=== PATIENT | male | born 1970 | race Caucasian/White ===

== ENCOUNTER 2024-03-28 15:35 | Emergency (ER) | payer MEDICARE ==
--- NOTE | 2024-03-28 16:01 | ERPHSYRPT ---
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 He has a history of cardiac stents and a pacemaker/defibrillator in place. His cardiologists are in [place] area in the [facility]. Patient is vacationing near the hospital in [place]. Patient thinks that he was defibrillated about 3:00 this morning but did not arrive to our facility until around 330 this afternoon. He states that his pain is typical for him when he has had MIs in the past but more intense. The pain is a sharp ache that is in the left anterior chest and radiates up into his neck and down his left arm. He has had no further sensations of defibrillation since that single episode at 3:00 in the morning earlier today. Patient is on Plavix Timing/Duration: today Activities at Onset: none Quality: aching, sharpness Location: other (Left chest) Chest Pain Radiation: jaw (Left), neck (Left), arm (Left) Severity of Pain-Max: moderate Severity of Pain-Current: moderate Prior Chest Pain/Cardiac Workup: cardiac cath, heart attack Nitro Today/Relief: no nitro taken today Aspirin Treatment Today: no aspirin today Allergies/Adverse Reactions: acetaminophen [From Darvocet-N] Allergy (Verified 03/28/24 16:01) adhesive tape Allergy (Verified 03/28/24 16:01) amitriptyline Allergy (Verified 03/28/24 16:01) cyclobenzaprine [From Flexeril] Allergy (Verified 03/28/24 16:01) propoxyphene [From Darvocet-N] Allergy (Verified 03/28/24 16:01) Home Medications: Amlodipine Besylate 5 mg [Norvasc 5 mg] 1 tab PO DAILY 03/28/24 [History] Atorvastatin Calcium [Lipitor 20MG Tablet] 1 tab PO DAILY 03/28/24 [History] Clopidogrel Bisulfate [PLAVIX Tablet] 1 tab PO DAILY 03/28/24 [History] Hydrocodone/Acetaminophen [Hydrocodone-Acetamin 10-325 mg] 1 tab PO Q4H PRN PRN 03/28/24 [History] Morphine Sulfate Cr 30 mg [Ms Contin 30 mg] 1 tab PO BID 03/28/24 [History] PANTOPRAZOLE 40 mg Tablet [Protonix 40MG Tablet] 1 tab PO DAILY 03/28/24 [History] Travel Risk - International Travel Have you traveled outside of the country in past 3 weeks: No - Emerging Infectious Disease Are you exhibiting symptoms associated with any current EIDs: No - Review of Systems Constitutional: No Symptoms Eyes: No Symptoms Ears, Nose, & Throat: No Symptoms Respiratory: No Symptoms Cardiac: Chest Pain Abdominal/Gastrointestinal: No Symptoms Genitourinary Symptoms: No Symptoms Musculoskeletal: No Symptoms Skin: No Symptoms Neurological: No Symptoms Psychological: No Symptoms Endocrine: No Symptoms Hematologic/Lymphatic: No Symptoms Immunological/Allergic: No Symptoms All Other Systems: Reviewed and Negative - Past Medical History Pertinent Past Medical History: Yes - Nursing Vital Signs Nursing Vital Signs: Initial Vital Signs Temperature 97.9 F 03/28/24 16:01 Pulse Rate 64 03/28/24 16:01 Respiratory Rate 18 03/28/24 16:01 Blood Pressure 179/87 03/28/24 16:01 O2 Sat by Pulse Oximetry 99 03/28/24 16:01 Pain Scale Pain Intensity 10 - Physical Exam General Appearance: no apparent distress, alert, anxiety, thin Eye Exam: PERRL/EOMI, eyes nml inspection Ears, Nose, Throat Exam: normal ENT inspection, moist mucous membranes Neck Exam: normal inspection, non-tender, supple, full range of motion Respiratory Exam: normal breath sounds, chest tenderness, lungs clear, airway intact, No respiratory distress Cardiovascular Exam: regular rate/rhythm, normal heart sounds, normal peripheral pulses Gastrointestinal/Abdomen Exam: soft, normal bowel sounds, No tenderness Rectal Exam: not done Back Exam: normal inspection, normal range of motion, No CVA tenderness, No vertebral tenderness Extremity Exam: normal inspection, normal range of motion, pelvis stable Neurologic Exam: alert, oriented x 3, cooperative, satellite dish installer II-XII nml as tested, nml cerebellar function, nml station & gait, sensation nml Skin Exam: normal color, warm, dry Lymphatic Exam: No adenopathy SpO2 Interpretation: normal O2 Delivery: Room Air - Course Nursing assessment & vital signs reviewed: Yes EKG Interpreted by Me: RATE (62), NORMAL AXIS, NORMAL INTERVALS, NORMAL QRS, NORMAL ST-T, Other (No acute ischemic changes on this current twelve-lead EKG. No comparison twelve-lead EKG available) Ordered Tests: Active Orders 24 hr Category Date Time Status AMA [Release AMA] OM.NOW Care 03/28/24 21:56 Ordered EKG-ER Only STAT Care 03/28/24 15:43 Active IV Insertion STAT Care 03/28/24 15:43 Active Pulse Oximetry (ED) STAT Care 03/28/24 15:48 Active CHEST 1 VIEW (PORTABLE) Stat Exams 03/28/24 16:05 Completed CHEST WITH CONTRAST [CT] Stat Exams 03/28/24 16:59 Completed CBC W DIFF Stat Lab 03/28/24 16:00 Completed CMP Stat Lab 03/28/24 16:00 Completed D-DIMER QUANTITATIVE Stat Lab 03/28/24 16:00 Completed MAGNESIUM Stat Lab 03/28/24 16:00 Completed NT PRO BNPII Stat Lab 03/28/24 16:00 Completed PROTIME WITH INR Stat Lab 03/28/24 16:00 Completed TROPONIN Q4H Lab 03/28/24 16:00 Completed TROPONIN Q4H Lab 03/28/24 18:50 Completed TROPONIN Q4H Lab 03/28/24 23:45 Ordered Medication Summary Discontinued Medications Generic Name Dose Route Start Last Admin Trade Name Freq PRN Reason Stop Dose Admin Aspirin 324 mg 03/28/24 15:44 03/28/24 16:20 Aspirin 81 Mg Tab.Chew PO 03/28/24 15:45 324 mg STAT ONE Administration Aspirin Confirm 03/28/24 16:16 Aspirin 81 Mg Tab.Chew Administered 03/28/24 16:17 Dose 324 mg .ROUTE .STK-MED ONE Heparin Sodium (Beef Lung) 5,000 unit 03/28/24 21:31 03/28/24 21:37 Heparin 5000 Units/0.5 Ml 5,000 Unit/0.5 Ml Syr IV 03/28/24 21:32 5,000 unit STAT ONE Administration Heparin Sodium (Beef Lung) Confirm 03/28/24 21:37 Heparin 5000 Units/0.5 Ml 5,000 Unit/0.5 Ml Syr Administered 03/28/24 21:38 Dose 5,000 unit .ROUTE .STK-MED ONE Sodium Chloride 500 mls @ 500 mls/hr 03/28/24 16:59 03/28/24 18:52 Sodium Chloride 0.9% 500 Ml IV 03/28/24 17:58 Infused .Q1H ONE Infusion Sodium Chloride Confirm 03/28/24 17:02 Sodium Chloride 0.9% 500 Ml Administered 03/28/24 17:03 Dose 500 mls @ ud IV .STK-MED ONE Morphine Sulfate 4 mg 03/28/24 15:48 03/28/24 16:19 Morphine Sulfate 4 Mg/Ml Injection IV 03/28/24 15:49 4 mg STAT ONE Administration Morphine Sulfate Confirm 03/28/24 16:16 Morphine Sulfate 4 Mg/Ml Injection Administered 03/28/24 16:17 Dose 4 mg .ROUTE .STK-MED ONE Morphine Sulfate 4 mg 03/28/24 18:06 03/28/24 18:18 Morphine Sulfate 4 Mg/Ml Injection IV 03/28/24 18:07 4 mg STAT ONE Administration Morphine Sulfate Confirm 03/28/24 18:17 Morphine Sulfate 4 Mg/Ml Injection Administered 03/28/24 18:18 Dose 4 mg .ROUTE .STK-MED ONE Morphine Sulfate 4 mg 03/28/24 20:27 03/28/24 21:05 Morphine Sulfate 4 Mg/Ml Injection IV 03/28/24 20:28 4 mg STAT ONE Administration Morphine Sulfate Confirm 03/28/24 21:02 Morphine Sulfate 4 Mg/Ml Injection Administered 03/28/24 21:03 Dose 4 mg .ROUTE .STK-MED ONE Nitroglycerin 1 gm 03/28/24 15:48 03/28/24 16:20 Nitroglycerin 1 Gm Packet TOP 03/28/24 15:49 1 gm STAT ONE Administration Nitroglycerin Confirm 03/28/24 16:16 Nitroglycerin 1 Gm Packet Administered 03/28/24 16:17 Dose 1 gm .ROUTE .STK-MED ONE Ondansetron HCl 4 mg 03/28/24 15:48 03/28/24 16:19 Ondansetron Hcl 4 Mg/2 Ml Vial IV 03/28/24 15:49 4 mg STAT ONE Administration Ondansetron HCl Confirm 03/28/24 16:16 Ondansetron Hcl 4 Mg/2 Ml Vial Administered 03/28/24 16:17 Dose 4 mg .ROUTE .STK-MED ONE Lab/Rad Data: Laboratory Result Diagrams 03/28/24 16:00 03/28/24 16:00 Laboratory Results 03/28/24 03/28/24 03/28/24 Range/Units 18:50 16:00 16:00 WBC (4.0-10.5) x10^3/uL RBC (4.1-5.6) x10^6/uL Hgb (12.5-18.0) g/dL Hct (42-50) % MCV (78-100) fL MCH (26-32) pg MCHC (32-36) g/dL RDW (11.5-14.0) % Plt Count (150-450) x10^3/uL MPV (7.5-11.0) fL Gran % (36.0-66.0) % Immature Gran % (Auto) (0.00-0.4) % Nucleat RBC Rel Count (0.00-0.1) % Eos # (Auto) (0-0.5) x10^3/uL Immature Gran # (Auto) (0.00-0.03) x10^3u/L Absolute Lymphs (auto) (1.0-4.6) x10^3/uL Absolute Monos (auto) (0.0-1.3) x10^3/uL Absolute Nucleated RBC (0.00-0.01) x10^3u/L Lymphocytes % (24.0-44.0) % Monocytes % (0.0-12.0) % Eosinophils % (0.00-5.0) % Basophils % (0.0-0.4) % Absolute Granulocytes (1.4-6.9) x10^3/uL Basophils # (0-0.4) x10^3/uL PT (9.4-12.5) SECONDS INR (0.8-3.0) D-Dimer (0.0-0.50) mg/L Sodium (135-145) mmol/L Potassium (3.5-5.1) mmol/L Chloride (98-107) mmol/L Carbon Dioxide (22-30) mmol/L Anion Gap (5-15) MEQ/L BUN (9-20) mg/dL Creatinine (0.66-1.25) mg/dL Estimated GFR ML/MIN Glucose (74-106) mg/dL Calcium (8.4-10.2) mg/dL Magnesium (1.6-2.3) mg/dL Total Bilirubin (0.2-1.3) mg/dL AST (17-59) U/L ALT (0-50) U/L Alkaline Phosphatase (38-126) U/L Troponin I < 0.012 < 0.012 (0.000-0.033) ng/mL NT-Pro-B Natriuret Pep 148 (<300) pg/mL Serum Total Protein (6.3-8.2) g/dL Albumin (3.5-5.0) g/dL 03/28/24 03/28/24 03/28/24 Range/Units 16:00 16:00 16:00 WBC 10.4 (4.0-10.5) x10^3/uL RBC 4.55 (4.1-5.6) x10^6/uL Hgb 14.2 (12.5-18.0) g/dL Hct 41.7 L (42-50) % MCV 91.6 (78-100) fL MCH 31.2 (26-32) pg MCHC 34.1 (32-36) g/dL RDW 13.0 (11.5-14.0) % Plt Count 179 (150-450) x10^3/uL MPV 11.5 H (7.5-11.0) fL Gran % 64.8 (36.0-66.0) % Immature Gran % (Auto) 0.3 (0.00-0.4) % Nucleat RBC Rel Count 0.0 (0.00-0.1) % Eos # (Auto) 0.13 (0-0.5) x10^3/uL Immature Gran # (Auto) 0.03 (0.00-0.03) x10^3u/L Absolute Lymphs (auto) 2.51 (1.0-4.6) x10^3/uL Absolute Monos (auto) 0.89 (0.0-1.3) x10^3/uL Absolute Nucleated RBC 0.00 (0.00-0.01) x10^3u/L Lymphocytes % 24.2 (24.0-44.0) % Monocytes % 8.6 (0.0-12.0) % Eosinophils % 1.3 (0.00-5.0) % Basophils % 0.8 (0.0-0.4) % Absolute Granulocytes 6.73 (1.4-6.9) x10^3/uL Basophils # 0.08 (0-0.4) x10^3/uL PT 10.4 (9.4-12.5) SECONDS INR 0.95 (0.8-3.0) D-Dimer 0.97 H* (0.0-0.50) mg/L Sodium 138 (135-145) mmol/L Potassium 4.1 (3.5-5.1) mmol/L Chloride 106 (98-107) mmol/L Carbon Dioxide 25 (22-30) mmol/L Anion Gap 10.7 (5-15) MEQ/L BUN 14 (9-20) mg/dL Creatinine 0.90 (0.66-1.25) mg/dL Estimated GFR 100.2 ML/MIN Glucose 134 H (74-106) mg/dL Calcium 9.4 (8.4-10.2) mg/dL Magnesium 1.9 (1.6-2.3) mg/dL Total Bilirubin 0.30 (0.2-1.3) mg/dL AST 23 (17-59) U/L ALT 16 (0-50) U/L Alkaline Phosphatase 82 (38-126) U/L Troponin I (0.000-0.033) ng/mL NT-Pro-B Natriuret Pep (<300) pg/mL Serum Total Protein 6.9 (6.3-8.2) g/dL Albumin 4.2 (3.5-5.0) g/dL - Progress Progress: improved, re-examined Air Movement: good Progress Note: 03/28/24 16:02 My medical decision making and the assignment of moderate to high complexity in this patient's condition today is based on review of the patient's past medical history, review the patient's medication list, review patient drug allergy list, history present illness and physical findings on examination. The workup in this patient includes placement of intravenous line, infusion of morphine 4 mg, infusion of 4 mg of Zofran, 1 inch of Nitropaste topically, 4 baby aspirin orally, CBC, CMP, Elysium level, D-dimer, troponin level, twelve-lead EKG and chest x-ray. Differential diagnosis includes myocardial infarction, arrhythmia, electrolyte abnormalities, pulmonary embolism 03/28/24 16:58 I interpreted the patient's laboratory data results. The patient does have a significantly elevated D-dimer level of 0.97. He is having chest pain. He is on Plavix. I do think there is low probability that there is a pulmonary embolism but he is having chest pain and the D-dimer is significantly elevated. I will order a CT scan of the chest with contrast. 03/28/24 21:12 The chest x-ray was interpreted by the radiologist and I reviewed the impression. Pression states nonacute hyperinflated chest with chronic features. CT scan of chest with contrast was interpreted by the radiologist and I reviewed the impression. Impression states no pulmonary embolus. There is emphysematous changes in the upper lobes. There is no evidence of pericardial effusion and no evidence of pleural effusion. 03/28/24 21:14 This patient needs inpatient observation and serial troponin levels at a facility where there is a assembly machine tool setter. He wants to transport himself to [facility] in [place]. I attempted to discourage him from doing this. He understands the risks of transporting himself, benefits of transporting via a monitored service such as an ambulance or airflight. He will sign AGAINST MEDICAL ADVICE and transport himself to [facility] pending acceptance from the assembly machine tool setter from that institution 03/28/24 21:57 I had another discussion with the patient and his significant other they are aware that I do not believe that is safe for them to transport this patient by private vehicle. He is attempting to bargain with us. He stated that if we let him go outside and smoke then he will allow us to arrange transportation for him. If he is not allowed to go outside and smoke, then he is leaving AGAINST MEDICAL ADVICE. We offered him a nicotine patch as well as an anxiolytic. He refused. He is signing out AGAINST MEDICAL ADVICE. He was advised to go dir ectly to the emergency department where there is a assembly machine tool setter available. He is aware we spoke with Dr. Victoria, the assembly machine tool setter on-call at [facility]. This is where he normally receives his cardiology care. Dr. Victoria is not excepting this patient since the patient is leaving AGAINST MEDICAL ADVICE. Blood Culture(s) Obtained: No Antibiotics given: No Counseled pt/family regarding: lab results, diagnosis, rad results Medical Desision Making - Independent Historian Additional History obtained from: Family - Diagnostic Testing Radiological Interpretation: Reviewed by me - Risk of complications The pt has a high risk of morbidity or mortality based on: Decision regarding hospitilization or escalation of hosp level of care - Departure Departure Disposition: AMA Clinical Impression: Chest pain Condition: Stable Critical Care Time: No Referrals: Provider,Unknown [Primary Care Provider] - Follow up/PCP as directed Additional Instructions: Patient was told to go directly to the emergency department at [facility] where he receives his cardiology care. He was told not to stop anywhere else. He is leaving AGAINST MEDICAL ADVICE
[2024-03-28 16:11] LABS: Absolute Neutrophil Ct (ANC) 6.73 x10^3/uL (1.4-6.9); BASOPHIL % 0.8 % (0.0-0.4); Basophil (Absolute #) 0.08 x10^3/uL (0-0.4); Eosinophil % 1.3 % (0.00-5.0); Eosinophil (Absolute #) 0.13 x10^3/uL (0-0.5); Hematocrit 41.7 % (42-50); Hemoglobin 14.2 g/dL (12.5-18.0); IMMATURE GRAN # 0.03 x10^3u/L (0.00-0.03); IMMATURE GRAN % 0.3 % (0.00-0.4); Lymphocyte (Absolute #) 2.51 x10^3/uL (1.0-4.6); Lymphocytes % 24.2 % (24.0-44.0); Mean Cell Volume 91.6 fL (78-100); Mean Corpuscular Hemoglobin 31.2 pg (26-32); Mean Corpuscular Hgb Concent. 34.1 g/dL (32-36); Mean Platelet Volume 11.5 fL (7.5-11.0); Monocyte (Absolute #) 0.89 x10^3/uL (0.0-1.3); Monocytes % 8.6 % (0.0-12.0); Neutrophil % 64.8 % (36.0-66.0); Platelet Count 179 x10^3/uL (150-450); Red Blood Count 4.55 x10^6/uL (4.1-5.6); White Blood Count 10.4 x10^3/uL (4.0-10.5)
[2024-03-28 16:14] VITALS: TEMP 97.9
[2024-03-28] MEDS ORDERED: MORPHINE SULFATE 4 MG INJ ONE ×3 (16:16→21:02)
[2024-03-28] MEDS ORDERED: NITRO-BID 2% UD PACKETS ONE (16:16)
[2024-03-28] MEDS ORDERED: BABY ASPIRIN 81 MG CHEW ONE (16:16)
[2024-03-28] MEDS ORDERED: Zofran 4 MG/2 ML VIAL ONE (16:16)
[2024-03-28] MEDS: MORPHINE SULFATE 4 MG INJ IV ONE ×3 (16:19→21:05)
[2024-03-28] MEDS: Zofran 4 MG/2 ML VIAL IV ONE (16:19)
[2024-03-28] MEDS: BABY ASPIRIN 81 MG CHEW PO ONE (16:20)
[2024-03-28] MEDS: NITRO-BID 2% UD PACKETS TOP ONE (16:20)
[2024-03-28 16:30] LABS: ALBUMIN 4.2 g/dL (3.5-5.0); ANION GAP 10.7 MEQ/L (5-15); BILIRUBIN,TOTAL 0.3 mg/dL (0.2-1.3); Calcium 9.4 mg/dL (8.4-10.2); Creatinine 1 0.9 mg/dL (0.66-1.25); EST GLOMERULAR FILTRATION RATE 100.2 ML/MIN; MAGNESIUM 1.9 mg/dL (1.6-2.3); Potassium 4.1 mmol/L (3.5-5.1); Total Protein 6.9 g/dL (6.3-8.2)
[2024-03-28 16:38] LABS: INR 0.95 (0.8-3.0); PROTIME 10.4 SECONDS (9.4-12.5)
[2024-03-28 16:41] LABS: D-DIMER QUANTITATIVE 0.97 mg/L (0.0-0.50)
[2024-03-28] MEDS ORDERED: Sodium Chloride 0.9% 500 ML 500 ML IV ONE (17:02)
[2024-03-28] MEDS: Sodium Chloride 0.9% 500 ML 500 ML IV ONE (17:49)
--- NOTE | 2024-03-28 20:05 | XRAY ---
CLINICAL HISTORY: CP; D-dimer elevated COMPARISON: None. TECHNIQUE: Contiguous axial CT images of the chest were acquired with the administration of intravenous contrast following PE protocol. Coronal and sagittal reconstructions were also obtained. One of the following dose reduction techniques was utilized for this exam: Automated exposure control, adjustment of the mA and/or kV according to patient size, and use of iterative reconstruction. FINDINGS: No evidence of the filling defect in the pulmonary trunk, main pulmonary arteries, and segmental branches to suggest pulmonary embolism. Pacemaker is noted with intact leads ending in the right atrium and right ventricle. Calcified aortic atheroma is noted. Heart size is normal, and there is no pericardial effusion. Lung pearson showed bilateral apical fibrotic changes. Mild centrilobular emphysematous changes are noted in the upper lobes Small calcified subpleural nodule is noted in the left upper lobe measured about 6 mm. Another large calcified nodule noted in the right lower lobe measured about 12 mm. Small calcified lymph node noted in the right hilum. No pathologically enlarged mediastinal, hilar or axillary lymph node is identified. No pleural effusion. Upper cuts in the abdomen are unremarkable. IMPRESSION: No pulmonary embolism. Electronically Signed by: Ezio Dale MD. (03/28/2024 20:01:47 EDT)
--- NOTE | 2024-03-28 20:26 | XRAY ---
Indication: Chest pain. Comparison: None Portable chest hyperinflated and clear with a few incidental calcified granulomas. Heart not enlarged with left pacemaker. Bony thorax intact. Impression: Nonacute hyperinflated chest with chronic features.
[2024-03-28] MEDS: HEPARIN 5000 UNITS/0.5 ML (HIGH RISK MED) IV ONE (21:37)
[2024-03-28] MEDS ORDERED: HEPARIN 5000 UNITS/0.5 ML (HIGH RISK MED) ONE (21:37)
[2024-03-28 22:06] VITALS: BP 169/84; PULSE 62; RESP 18; O2SAT 100
== END 2024-03-28 22:05 | disposition left against medical advice (07) ==
LOC: ED 15:35
DX: R07.9 Chest pain, unspecified (principal); I25.2 Old myocardial infarction; Z95.810 Presence of automatic (implantable) cardiac defibrillator; Z79.02 Long term (current) use of antithrombotics/antiplatelets; Z79.891 Long term (current) use of opiate analgesic; Z79.899 Other long term (current) drug therapy
CPT/HCPCS: 36000; 36415; 71045; 71260; 80053; 83735; 83880; 84484; 85025; 85379; 85610; 93005; 94760; 96374; 96375; 96376; 99285; J1644; J2270; J2405; A9270-GY